=== PATIENT | male | born 1950 | race Caucasian/White ===

== ENCOUNTER 2021-12-27 07:52 | Outpatient (CLI) | payer BC, SELFPAY ==
[2021-12-27 11:39] LABS: Albumin* 4.3 g/dL (3.3-5.0); Chloride* 98 mmol/L (96-114); Sodium* 135 mmol/L (135-149)
[2021-12-27 11:40] LABS: Potassium* 4.5 mmol/L (3.6-5.1)
[2021-12-27 11:42] LABS: Alanine Aminotransferase* 6 U/L (4-50); Alkaline Phosphatase* 97 U/L (40-150); Aspartate Amino Transferase* 22 U/L (12-35); Bilirubin Total* 0.6 mg/dL (0.1-1.5); Blood Urea Nitrogen* 17 mg/dL (7-30); Carbon Dioxide* 30 mmol/L (20-32); Cholesterol* 170 mg/dL (90-199); Creatinine* 0.9 mg/dL (0.5-1.5); Estimated Glomerular Filt Rate 91 ml/min; Glucose* 229 mg/dL (60-115); Total Protein* 7.2 g/dL (6.0-8.3); Triglycerides* 288 mg/dL (40-149)
[2021-12-27 11:43] LABS: Calcium* 9.4 mg/dL (8.4-10.6); HDL Cholesterol* 39 mg/dL (>=40); LDL Cholesterol Calculated 73 mg/dL (<100)
[2021-12-27 12:09] LABS: Microalbumin Creatinine Ratio 10 mg/g (0-30); Microalbumin Urine 2 mg/dL
== END 2021-12-27 07:53 | disposition home or self-care (01) ==
PROVIDERS: PCP Family Medicine; Visit Provider Family Medicine
DX: Z00.00 Encounter for general adult medical examination without abnormal findings (principal); E11.9 Type 2 diabetes mellitus without complications; G20 Parkinson's disease; E78.5 Hyperlipidemia, unspecified; I95.9 Hypotension, unspecified
CPT/HCPCS: 80053; 80061; 82043; 82570

== ENCOUNTER 2023-10-02 08:20 | Outpatient (CLI) | payer BC, SELFPAY ==
--- OUTSIDE RECORDS SUMMARY | 2023-10-06 06:42 | XMS_ITS ---
Author Name Unknown Organization [facility] Address [address] [place] [address] Care Team Providers Care Sorter Operator Name Role Phone Unavailable Unavailable Unavailable Surgery Details Not on file Complications Check Surgery Details section. Procedure Estimated Blood Loss Check Surgery Details section. Procedure Findings Check Surgery Details section. Procedure Specimens Taken Check Surgery Details section.
--- OUTSIDE RECORDS SUMMARY | 2023-10-06 06:42 | XMS_ITS | Clinical Summary ---
Author Name Unknown Organization [facility] Address [address] [place] [address] Care Team Providers Care Drilling Manager Name Role Phone Elsewhere, Pcp Primary Care Provider Unavailabl e Source Comments Patient records contain information from all sites at [facility]. For routine questions regarding patient records, call [phone] during business hours, M-F 8:00 AM - 5:00 PM Central Time. Record requests for emergency care only can be directed to [phone] at any time.[facility] Allergies No known active allergies Medications Medication Sig Dispensed Refills Start Date End Date Status simvastatin (ZOCOR) 20 mg tablet Take 20 mg by mouth every evening. 05/06/2018 Active calcium citrate-vitamin D3 315-250 mg-unit per tablet Take 1 tablet by mouth daily with breakfast. Active multivitamin-mine jani-QU-kwligmhh- lutein (CENTRUM SILVER) 0.4-300-250 mg-mcg-mcg tablet Take 1 tablet by mouth every morning. Active cholecalciferol, vitamin D3, 25 mcg (1,000 Unit) tablet Take 1,000 Units by mouth every morning. Active carbidopa-levodop a (SINEMET) 25-100 mg per tablet Take 2 tablets by mouth 3 (three) times a day. 540 tablet 3 09/19/2023 Active carbidopa-levodop a (SINEMET) 25-100 mg per tablet TAKE 2 TABLETS BY MOUTH THREE TIMES DAILY 540 tablet 3 10/01/2022 09/19/2023 Discontinued (Reorder) Active Problems Patient Care Coordination No te Formatting of this note migh t be different from the original. 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 Med Refill from Last 3 Months Immunizations Name Administration Dates Next Due HZV (ZOSTAVAX) 02/11/2017 Influenza, Unspecified 06/22/1996 MMR 06/03/2017 PCV13 05/17/2016 Pneumococcal, Unspecified 06/03/2017 Td, (Adult) Unspecified 02/15/2009 Tdap 05/06/2018 Family History Medical History Relation Name Comments Cancer Mother Relation Name Status Comments Father Mother Social History Tobacco Use Types Packs/Day Years Used Date Smoking Tobacco: Never Smokeless Tobacco: Never Alcohol Use Standard Drinks/Week Comments No 0 (1 standard drink = 0.6 oz pur e alcohol) Social Connection and Isolation Panel [NHANES] A nswer Date Recorded Frequency of Communication with Friends and Fami ly Not on file 12/24/2019 How often do you get together with friends or re latives? Never 12/24/2019 How often do you attend bahai or temple serv ices? Never 12/24/2019 Active Member of Clubs or Organizations Not on f ile 12/24/2019 How often do you attend meet ings of the clubs or organizations you belong to? Never 12/24/2019 Marital Status Not on file 12/24/2019 AUDIT-C Answer Date Recorded Frequency of Alcohol Consumption Never 01/09/2019 Average Number of Drinks Patient declined 2018 Frequency of Binge Drinking Never 12/25 Overall Financial Resource Strain (CARDIA) Answe r Date Recorded Difficulty of Paying Living Expenses Not very call[address] rd 01/09/2019 PHQ-2 Answer Date Recorded PHQ-2 Score 0 01/23/2019 [facility] [place] of Occupat ional Health - Occupational Stress Questionnaire Answer Date Recorded Do you feel stress - tense, restless, nervous, or anxious, or unable to sleep at night because your mind is troubled all the time - these days? Only a little 12/24/2019 Exercise Vital Sign Answer Date Recorde d Days of Exercise per Week Not on file 2019 On average, how many minutes do you engage in exercise at this level? 30 min 12/24/2019 Hunger Vital Sign Answer Date Recorded Worried About Running Out of Food in the Last Ye ar Never true 01/09/2019 Ran Out of Food in the Last Year Never true 01/09/2019 PRAPARE - Transportation Answer Date Re corded Lack of Transportation (Medical) No 01/09/2019 Lack of Transportation (Non-Medical) No 01/09/2019 Nutrition Answer Date Recorded Nutrition: EVOO Fat Source Unknown 12/29 Nutrition: Servings of Fruits/Vegetables per Day Not on file 12/29/2022 Dental Answer Date Recorded Dental: Regular Dentist Unknown 12/30/19 23 Education Answer Date Recorded What is the highest level of school you have completed or the highest degree you have received? 10th grade 01/09/2019 Sex and Gender Information Value Date Recorded Sex Assigned at Not on file Gender Identity Male 09/13/2018 7:59 AM CDT Sexual Orientation Straight 03/26/2020 12 :05 PM CDT Last Filed Vital Signs Vital Sign Reading Time Taken Comments Blood Pressure 160/84 01/06/2020 1:00 PM CDT Pulse 66 01/06/2020 1:00 PM CDT Temperature 36.6 ??C (97.9 ??F) 01/06/2020 1:00 PM CD T Respiratory Rate 18 01/06/2020 1:00 PM CDT Oxygen Saturation 94% 01/06/2020 1:00 PM CDT Inhaled Oxygen Concentration - - Weight 70.3 kg (154 lb 15.7 oz) 01/06/2020 9:33 AM CDT Height 174.5 cm (5' 8.7) 01/06/2020 9:33 AM CDT Body Mass Index 23.09 01/06/2020 9:33 AM CDT Plan of Treatment Health Maintenance Due Date Last Done Comments CT Colonography 1950 Cologuard 1950 Colonoscopy 1950 Colorectal Cancer Screening 1950 FIT 1950 Hepatitis C Screening 1950 Zoster Vaccines (2 of 3) 04/08/2017 02/11/2017 Pneumococcal vaccine (65+ ye ars) (2 of 2 - PPSV23 or PCV20) 05/17/2017 06/03/2017, 06/03/2017, 05/17/2016 Fasting Glucose for Diabetes Screening 04/29/2021 04/29/2018, 05/29/2017 Lipid (Cholesterol) Screening 04/29/2023 04/29/2018, 05/29/2017 Depression Screening (Annual PHQ-2) 05/27/2023 Fall Risk Screen (Annual) 05/27/2023 COVID-19 Vaccine (2022-2 4 season) 2023 03/25/2023, 01/02/2022, 04/06/2021, Additional history exists DTaP,Tdap,and Td Vaccines (3 - Td or Tdap) 11/28/2030 11/28/2020, 05/06/2018, 02/15/2009 Influenza Vaccine Completed 03/25/2023, , 03/01/2021, Additional history exists Medical Devices Implanted Type Area Stack Yield Engineer Device Identifier Shelf Expiration Date Model / Serial / Lot Percpt Brainsense Generator Implanted:Qty: 1 on 01/06/2020 by Gab Campbell M.D., Ph.D. at [facility] Deep Brain Stimulator Left: Chest Wall Medtronic [id number] / [id number] / Plt Mtr Cmf Str 2h 12 - [id number] Implanted:Qty: 2 on 12/30/2019 at [facility] Hardware e.g. pins/screws/r ods Brain Depuy Synthes 04503.062 / / Scrw Ti Mtr Slv 1.55x2.55x5 - [id number] Implanted:Qty: 4 on 12/30/2019 at [facility] Hardware e.g. pins/screws/r ods Brain Depuy Synthes 04503.105 .01 / / Lead Dbs Perq Brain 4 Elctrd - [id number] Implanted:Qty: 1 on 12/30/2019 at [facility] Spinal Cord Stimulator Right: Brain Medtronic 06/10/2022 [id number] / / [id number] Lead Dbs Perq Brain 4 Elctrd - [id number] Implanted:Qty: 1 on 12/30/2019 at [facility] Spinal Cord Stimulator Left: Brain Medtronic 06/10/2022 [id number] / / [id number] Kt Neurostm 60 - [id number] - [id number] Implanted:Qty: 1 on 01/06/2020 by Gab Campbell M.D., Ph.D. at [facility] Spinal Cord Stimulator Left: Brain Medtronic 11/16/2023 [id number] / [id number] / Kt Neurostm 60 - [id number] - [id number] Implanted:Qty: 1 on 01/06/2020 by Gab Campbell M.D., Ph.D. at [facility] Spinal Cord Stimulator Left: Brain Medtronic 11/16/2023 [id number] / [id number] / Procedures Procedure Name Priority Date/Time Associated Diagnosis Comments BASIC METABOLIC PANEL, S/P Routine 04/29/2018 LIPID PANEL, S Routine 04/29/2018 from Last 3 Months or Most Recently Relevant to Health Maintenance Results * Lipid Panel (04/29/2018) Triglycerides 123 40 - 160 UNDERGROUND CONDUIT INSTALLER AL NON-INTERFACE D LAB Cholesterol, Total 134 0 - 200 E XTERNAL NON-INTERFACE D LAB Cholesterol, HDL, S 50 35 - 70 EXTERNAL NON-INTERFACE D LAB LDL Cholesterol 59 EXTE RNAL NON-INTERFACE D LAB Blood (Blood, Venous) Ordering Provider External M.D. LAB BLOO D NON ADD-ON Performing Organization Address [facility] Co de Phone Number EXTERNAL NON-INTERFACED LAB [address] [place] [address] * Basic Metabolic Panel (04/29/2018) Glucose 102 mg/dL EXTERNAL NON-INTERFACED LAB Blood (Blood, Venous) Ordering Provider External M.D. LAB BLOO D ADD-ON Performing Organization Address [facility]/ZIP Co de Phone Number EXTERNAL NON-INTERFACED LAB [address] [place] [address] from Last 3 Months or Most Recently Relevant to Health Maintenance Advance Directives For more information, please contact: [phone] Documents on File Type Date Recorded Patient Medical Officer Psychiatry Expl anation Advance Directives 12/30/2019 7:13 AM Healt h Care Directive * Full Code (Latest Code Status on File) Date Activated Date Inactivated Comments 12/30/2019 12:52 PM 12/31/2019 12:03 PM Question Answer Comments Full Code: Not Discussed Due to: Patient not available Healthcare Agents on File Name Relationship Healthcare Agent Relationshi p Communication Lauren Chawla Spouse Health Care Agent Elizabeth Ann Efren Daughter First Alternate Health Care Agent Care Teams Drilling Manager Relationship Specialty Start Date End Date Elsewhere, Pcp PCP - General Family Medicine 05/21/18
--- OUTSIDE RECORDS SUMMARY | 2023-10-06 06:42 | XMS_ITS | Referral Summary ---
Author Name Unknown Organization [facility] Address [address] [place] [address] Care Team Providers Care Point Of Care Specialist Name Role Phone Elsewhere, Pcp Primary Care Provider Unavailabl e Source Comments Patient records contain information from all sites at [facility]. For routine questions regarding patient records, call [phone] during business hours, M-F 8:00 AM - 5:00 PM Central Time. Record requests for emergency care only can be directed to [phone] at any time.[facility] Encounters Date Type Department Care Team Description 09/19/2023 Refill Department of Neurology in [place], [place] [address] [place] [address] Robin Jacobs M.D. Med Refill from Last 3 Months Allergies No known active allergies Medications Medication Sig Dispensed Refills Start Date End Date Status simvastatin (ZOCOR) 20 mg tablet Take 20 mg by mouth every evening. 05/06/2018 Active calcium citrate-vitamin D3 315-250 mg-unit per tablet Take 1 tablet by mouth daily with breakfast. 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 Never 12/24/2019 Active Member of [...] Answer Date Recorded PHQ-2 Score 0 01/23/2019 [facility] [place] of Occupat ional Health - Occupational Stress [...] 01/06/2020 9:33 AM CDT Plan of Treatment Not on file Medical Devices Implanted Type Area Restaurant Service Manager Device Identifier Shelf Expiration Date Model / Serial / Lot Percpt Brainsense Generator Implanted:Qty: 1 on 01/06/2020 by aGb Campbell M.D., Ph.D. at [facility] Deep Brain Stimulator Left: Chest Wall Medtronic [id number] / [id number] / Plt Mtr Cmf [facility] 12 - [id number] Implanted:Qty: 2 on 12/30/2019 at [facility] Hardware e.g. pins/screws/r ods Brain Depuy Synthes 503.062 / / Scrw Ti Mtr Slv 1.55x2.55x5 - [id number] Implanted:Qty: 4 on 12/30/2019 at [facility] Hardware e.g. pins/screws/r ods Brain Depuy Synthes 503.105 .01 / / Lead Dbs Perq Brain 4 Elctrd - [id number] Implanted:Qty: 1 on 12/30/2019 at [facility] Spinal Cord Stimulator Right: Brain Medtronic 06/10/2022 [id number] / / [id number] Lead Dbs Perq Brain 4 Elctrd - [id number] Implanted:Qty: 1 on 12/30/2019 at [facility] Spinal Cord Stimulator Left: Brain Medtronic 06/10/2022 [id number] / / [id number] Kt Neurostm 60 - [id number] - [id number] Implanted:Qty: 1 on 01/06/2020 by Gab Campbell M.D., Ph.D. at [facility] Spinal Cord Stimulator Left: Brain Medtronic 11/16/2023 [id number] / [id number] / Kt Neurostm 60 - [id number] - [id number] Implanted:Qty: 1 on 01/06/2020 by Gab Campbell M.D., Ph.D. at [facility] Spinal Cord Stimulator Left: Brain Medtronic 11/16/2023 [id number] / [id number] / Procedures Procedure Name Priority Date/Time Associated Diagnosis Comments BASIC METABOLIC PANEL, S/P Routine 04/29/2018 LIPID PANEL, S Routine 04/29/2018 from Last 3 Months or Most Recently Relevant to Health Maintenance Results * Lipid Panel (04/29/2018) Triglycerides 123 40 - 160 FORKLIFT TRUCK OPERATOR AL NON-INTERFACE D LAB Cholesterol, Total 134 0 - 200 E XTERNAL NON-INTERFACE D LAB Cholesterol, HDL, S 50 35 - 70 EXTERNAL NON-INTERFACE D LAB LDL Cholesterol 59 EXTE RNAL NON-INTERFACE D LAB Blood (Blood, Venous) Ordering Provider External M.D. LAB BLOO D NON ADD-ON Performing Organization Address [facility] de Phone Number EXTERNAL NON-INTERFACED LAB [address] [place] [address] * Basic Metabolic Panel (04/29/2018) Glucose 102 mg/dL EXTERNAL NON-INTERFACED LAB Blood (Blood, Venous) Ordering Provider External M.D. LAB BLOO D ADD-ON Performing Organization Address [facility] Co de Phone Number EXTERNAL NON-INTERFACED LAB [address] [place] [address] from Last 3 Months or Most Recently Relevant to Health Maintenance Advance Directives For more information, please contact: [phone] Documents on File Type Date Recorded Patient Manager Proposal Expl anation Advance Directives 12/30/2019 7:13 AM Healt h Care Directive * Full Code (Latest Code Status on File) Date Activated Date Inactivated Comments 12/30/2019 12:52 PM 12/31/2019 12:03 PM Question Answer Comments Full Code: Not Discussed Due to: Patient not available Healthcare Agents on File Name Relationship Healthcare Agent [facility] Communication Lauren Denton Spouse Health Care Agent Elizabethshima Schwartz Daughter First Alternate Health Care Agent Care Teams Point Of Care Specialist Relationship Specialty Start Date End Date Elsewhere, Pcp PCP - General Family Medicine 05/21/18
--- OUTSIDE RECORDS SUMMARY | 2023-10-06 06:42 | XMS_ITS | Encounter Summary ---
Author Name Unknown Organization [facility] Address [address] [place] [address] Care Team Providers Care Mounter Smoking Pipe Name Role Phone Elsewhere, Pcp Primary Care Provider Unavailabl e Reason for Visit * Reason Comments Med Refill Encounter Details Date Type Department Care Team (Late st Contact Info) Description 09/19/2023 Refill Department of Neurology in [place], [place] [address] [place] [address] Robin Jacobs M.D. [address] [place] [phone] Med Refill Social History Tobacco Use Types Packs/Day Years [...] How often do you attend bahai or episcopal serv ices? Never 12/24/2019 Active Member of [...] Answer Date Recorded PHQ-2 Score 0 01/23/2019 [facility] [place] of Occupat ional Health - Occupational Stress [...] Orientation Straight 03/26/2020 12 :05 PM CDT documented as of this encounter Plan of Treatment Not on file documented as of this encounter Visit Diagnoses Not on filedocumented in this encounter Additional Health Concerns Assessment Noted Time PHQ-9 Depression Total Score: 0 01/24/20 19 8:05 AM CDT documented as of this encounter Care Teams Mounter Smoking Pipe Relationship Specialty Start Date End Date Elsewhere, Pcp PCP - General Family Medicine 05/21/18 documented as of this encounter
== END 2023-10-02 08:21 | disposition home or self-care (01) ==
LOC: NFLDREF 10-06 06:40
PROVIDERS: PCP Family Medicine; Referring Provider Family Medicine; Visit Provider Internal Medicine
DX: E11.9 Type 2 diabetes mellitus without complications (principal); I10 Essential (primary) hypertension; Z13.220 Encounter for screening for lipoid disorders; Z12.5 Encounter for screening for malignant neoplasm of prostate
CPT/HCPCS: 80053; 80061; 82043; 82570; G0103

== ENCOUNTER 2024-02-11 08:55 | Outpatient (CLI) | payer BC, SELFPAY ==
--- OUTSIDE RECORDS SUMMARY | 2024-02-13 11:23 | XMS_ITS | Clinical Summary ---
Author Organization [facility] Address [address] [place] [address] Care Team Providers Care Photography Editor Name Role Phone Elsewhere, Pcp Primary Care Provider Unavailabl e Source Comments Patient records contain information from all sites at [facility]. For routine questions regarding patient records, call [phone] during business hours, M-F 8:00 AM - 5:00 PM Central Time. Record requests for emergency care only can be directed to [phone] at any time.[facility] Allergies No known active allergies Medications Medication Sig Dispensed Refills Start Date End Date Status simvastatin (ZOCOR) 20 mg tablet Take 20 mg by mouth every evening. 05/06/2018 Active calcium citrate-vitamin D3 315-250 mg-unit per tablet Take 1 tablet by mouth daily with breakfast. Active multivitamin-mineral q-PQ-mlwjnscy-lutein (CENTRUM SILVER) 0.4-300-250 mg-mcg-mcg tablet Take 1 tablet by mouth every morning. Active cholecalciferol, vitamin D3, 25 mcg (1,000 Unit) tablet Take 1,000 Units by mouth every morning. Active carbidopa-levodopa (SINEMET) 25-100 mg per tablet Take 2 tablets by mouth 3 (three) times a day. 540 tablet 3 09/19/2023 Active Active Problems Patient Care Coordination No te Formatting of this note migh t be different from the original. 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 Parkinson's Disease With Dyskinesia, With Fluctuations (HCC) (Primary Dx); Parkinsonism Unspecified (HCC) from Last 3 Months Immunizations Name Administration [...] Never 12/24/2019 How often do you attend gnosticism or holiness serv ices? Never 12/24/2019 Active Member of [...] Answer Date Recorded PHQ-2 Score 0 01/23/2019 [facility] of Occupat ional Health - Occupational Stress [...] Date Recorded Dental: Regular Dentist Unknown 12/30/19 Education Answer Date Recorded What is the [...] Fall Risk Screen (Annual) 05/27/2023 COVID-19 Vaccine ( - 2022-2 4 season) 2024 03/25/2023, 01/02/2022, 04/06/2021, Additional history exists Influenza Vaccine (#1) 2024 , 03/07/2022, 03/01/2021, Additional history exists DTaP,Tdap,and Td Vaccines (4 - Td or Tdap) 11/28/2030 11/28/2020, 05/06/2018, 12/19/2011, Additional history exists Medical Devices Implanted Type Area Actuarial Science Professor Device Identifier Shelf Expiration Date Model / Serial / Lot Percpt Brainsense Generator Implanted:Qty: 1 on 01/06/2020 by Gab Campbell M.D., Ph.D. at [facility] Deep Brain Stimulator Left: Chest Wall Medtronic [id number] / [id number] / Plt Mtr Cmf Str 2h 12 - [id number] Implanted:Qty: 2 on 12/30/2019 at [facility] Hardware e.g. pins/screws/r ods Brain Depuy Synthes 04.503.062 / / Scrw Ti Mtr Slv 1.55x2.55x5 - [id number] Implanted:Qty: 4 on 12/30/2019 at [facility] Hardware e.g. pins/screws/r ods Brain Depuy Synthes 04.503.105 .01 / / Lead Dbs Perq Brain 4 Elctrd - [id number] Implanted:Qty: 1 on 12/30/2019 at [facility] Spinal Cord Stimulator Right: Brain Medtronic 06/10/2022 [id number] / / [id number] Lead Dbs Perq Brain 4 Elctrd - [id number] Implanted:Qty: 1 on 12/30/2019 at [facility] Spinal Cord Stimulator Left: Brain Medtronic 06/10/2022 [id number] / / [id number] Kt Neurostm 60 - [id number] - [id number] Implanted:Qty: 1 on 01/06/2020 by Gab Campbell M.D., Ph.D. at [facility] Spinal Cord Stimulator Left: Brain Medtronic 11/16/2023 [id number] / [id number] / Kt Neurostm 60 - [id number] - [id number] Implanted:Qty: 1 on 01/06/2020 by Gab Campbell M.D., Ph.D. at [facility] Spinal Cord Stimulator Left: Brain Medtronic 11/16/2023 [id number] / [id number] / Procedures Procedure Name Priority Date/Time Associated Diagnosis Comments DEEP BRAIN STIMULATOR (DBS) PROGRAMMING MOVEMENT DISORDER - NURSING Routine 01/16/2024 9:32 AM CDT Parkinson Disease (HCC) BASIC METABOLIC PANEL, S/P Routine 04/29/2018 LIPID PANEL, S Routine 04/29/2018 from Last 3 Months or Most Recently Relevant to Health Maintenance Results * Lipid Panel (04/29/2018) Triglycerides 123 40 - 160 SALES AND MARKETING ANALYST AL NON-INTERFACE D LAB Cholesterol, Total 134 0 - 200 E XTERNAL NON-INTERFACE D LAB Cholesterol, HDL, S 50 35 - 70 EXTERNAL NON-INTERFACE D LAB LDL Cholesterol 59 EXTE RNAL NON-INTERFACE D LAB Blood (Blood, Venous) Ordering Provider External M.D. LAB BLOO D NON ADD-ON Performing Organization Address [facility] Co de Phone Number EXTERNAL NON-INTERFACED LAB [address] [place] [address] * Basic Metabolic Panel (04/29/2018) Glucose 102 mg/dL EXTERNAL NON-INTERFACED LAB Blood (Blood, Venous) Ordering Provider External M.D. LAB BLOO D ADD-ON Performing Organization Address [facility]/ZIP Co de Phone Number EXTERNAL NON-INTERFACED LAB [address] [place] [address] from Last 3 Months or Most Recently Relevant to Health Maintenance Advance Directives For more information, please contact: [phone] Documents on File Type Date Recorded Patient Semi Automatic Sewing Machine Operator Expl anation Advance Directives 12/30/2019 7:13 AM Healt h Care Directive * Full Code (Latest Code Status on File) Date Activated Date Inactivated Comments 12/30/2019 12:52 PM 12/31/2019 12:03 PM Question Answer Comments Full Code: Not Discussed Due to: Patient not available Healthcare Agents on File Name Relationship Healthcare Agent Relationshi p Communication Lauren Chawla Spouse Health Care Agent Elizabeth Schwartz Daughter First Alternate Health Care Agent Care Teams Photography Editor Relationship Specialty Start Date End Date Elsewhere, Pcp PCP - General Family Medicine 05/21/18
--- OUTSIDE RECORDS SUMMARY | 2024-02-13 11:23 | XMS_ITS | Referral Summary ---
Author Organization [facility] Address [address] [place] [address] Care Team Providers Care Black Mill Operator Name Role Phone Elsewhere, Pcp Primary Care Provider Unavailabl e Source Comments Patient records contain information from all sites at [facility]. For routine questions regarding patient records, call [phone] during business hours, M-F 8:00 AM - 5:00 PM Central Time. Record requests for emergency care only can be directed to [phone] at any time.[facility] Encounters Date Type Department Care Team Description 01/16/2024 10:00 AM CDT Ancillary Procedure Department of Neurology in [place], [place] [address] [place] [address] Robin Jacobs M.D. Parkinson's Disease With Dyskinesia, With Fluctuations (HCC) (Primary Dx); Parkinsonism Unspecified (HCC) from Last 3 Months Allergies No known active allergies Medications Medication Sig Dispensed Refills Start Date End Date Status simvastatin (ZOCOR) 20 mg tablet Take 20 mg by mouth every evening. 05/06/2018 Active calcium citrate-vitamin D3 315-250 mg-unit per tablet Take 1 tablet by mouth daily with breakfast. Active multivitamin-mineral p-HF-vmfbfumf-lutein (CENTRUM SILVER) 0.4-300-250 mg-mcg-mcg tablet Take 1 [...] Never 12/24/2019 How often do you attend samaritan or episcopalian serv ices? Never 12/24/2019 Active Member of [...] Answer Date Recorded PHQ-2 Score 0 01/23/2019 [facility] [place] of Occupat ional Health - Occupational Stress [...] on file Medical Devices Implanted Type Area Driftman Device Identifier Shelf Expiration Date Model / Serial / Lot Percpt Brainsense Generator Implanted:Qty: 1 on 01/06/2020 by Gab Campbell M.D., Ph.D. at [facility] Deep Brain Stimulator Left: Chest Wall Medtronic [id number] / [id number] / Plt Mtr Cmf Str 2h 12 - [id number] Implanted:Qty: 2 on 12/30/2019 at [facility] Hardware e.g. pins/screws/r ods Brain [employer] 503.062 / / Scrw Ti Mtr Slv 1.55x2.55x5 - [id number] Implanted:Qty: 4 on 12/30/2019 at [facility] Hardware e.g. pins/screws/r ods Brain Depuy Synthes 503.105 .01 / / Lead Dbs Perq Brain 4 Elctrd - [id number] Implanted:Qty: 1 on 12/30/2019 at [facility] Spinal Cord Stimulator Right: Brain Medtronic 06/10/2022 [id number] / / [id number] Lead Dbs Perq Brain 4 Elctrd - [id number] Implanted:Qty: 1 on 12/30/2019 at [facility] Spinal Cord Stimulator Left: Brain Medtronic 06/10/2022 [id number] / / [id number] Kt Neurostm 60 - [id number] - [id number] Implanted:Qty: 1 on 01/06/2020 by Gab Campbell M.D., Ph.D. at [facility] Spinal Cord Stimulator Left: Brain Medtronic 11/16/2023 [id number] / [id number] / Kt Neurostm 60 - [id number] - [id number] Implanted:Qty: 1 on 01/06/2020 by Gab Campbell M.D., Ph.D. at [facility] Spinal Cord Stimulator Left: Brain Medtronic 11/16/2023 [id number] / [id number] / Procedures Procedure Name Priority Date/Time Associated Diagnosis Comments DEEP BRAIN STIMULATOR (DBS) PROGRAMMING MOVEMENT DISORDER - NURSING Routine 01/16/2024 9:32 AM CDT Parkinson Disease (HCC) BASIC METABOLIC PANEL, S/P Routine 04/29/2018 LIPID PANEL, S Routine 04/29/2018 from Last 3 Months or Most Recently Relevant to Health Maintenance Results * Lipid Panel (04/29/2018) Triglycerides 123 40 - 160 [facility] SOR[facility] AL NON-INTERFACE D LAB Cholesterol, Total 134 0 - 200 E XTERNAL NON-INTERFACE D LAB Cholesterol, HDL, S 50 35 - 70 EXTERNAL NON-INTERFACE D LAB LDL Cholesterol 59 EXTE RNAL NON-INTERFACE D LAB Blood (Blood, Venous) Ordering Provider External M.D. LAB BLOO D NON ADD-ON Performing Organization Address [facility] Co de Phone Number EXTERNAL NON-INTERFACED LAB [address] [place] [address] * Basic Metabolic Panel (04/29/2018) Glucose 102 mg/dL EXTERNAL NON-INTERFACED LAB Blood (Blood, Venous) Ordering Provider External M.D. LAB BLOO D ADD-ON Performing Organization Address [facility] Co de Phone Number EXTERNAL NON-INTERFACED LAB [address] [place] [address] from Last 3 Months or Most Recently Relevant to Health Maintenance Advance Directives For more information, please contact: [phone] Documents on File Type Date Recorded Patient Sales Broker Expl anation Advance Directives 12/30/2019 7:13 AM Healt h Care Directive * Full Code (Latest Code Status on File) Date Activated Date Inactivated Comments 12/30/2019 12:52 PM 12/31/2019 12:03 PM Question Answer Comments Full Code: Not Discussed Due to: Patient not available Healthcare Agents on File Name Relationship Healthcare [facility] Lauren Chawla Spouse Health Care Agent Elizabeth Ann Efren Daughter First Alternate Health Care Agent Care Teams Black Mill Operator Relationship Specialty Start Date End Date Elsewhere, Pcp PCP - General Family Medicine 05/21/18
--- OUTSIDE RECORDS SUMMARY | 2024-02-13 11:23 | XMS_ITS ---
Author Organization [facility] Address [address] [place] [id number] Care Team Providers Care Day Porter Name Role Phone Unavailable Unavailable Unavailable Surgery Details Not on file Complications Check Surgery Details section. Procedure Estimated Blood Loss Check Surgery Details section. Procedure Findings Check Surgery Details section. Procedure Specimens Taken Check Surgery Details section.
--- OUTSIDE RECORDS SUMMARY | 2024-02-13 11:23 | XMS_ITS | Encounter Summary ---
Author Organization [facility] Address [address] [place] [address] Care Team Providers Care [employer] Distillery Name Role Phone Elsewhere, Pcp Primary Care Provider Unavailabl e Reason for Referral * Outpatient (Routine) - Pending Review Specialty Diagnoses / Procedures Referred By Ngozi peacock Referred To Contact Diagnoses Parkinsonism Unspecified (HCC) Procedures Deep brain stimulator (DBS) programming movement disorder - Nursing Desiree Slaughter M.D. [address] [place] [address] [facility] Referral ID Status Reason Start Date Expiration Date V isits Requested Visits Authorized [id number] Pending Review 01/16/2024 01/15/2025 1 1 Reason for Visit * Outpatient (Routine) - Closed Specialty Diagnoses / Procedures Referred By Ngozi peacock Referred To Contact Diagnoses Parkinsonism Unspecified (HCC) Procedures Deep brain stimulator (DBS) programming - Nursing IN [facility] NPGT PRGRMG 15 MIN Robin Jacobs M.D. [address] [place] [address] [facility] Referral ID Status Reason Start Date Expiration Date Visits Re quested Visits Authorized [id number] Closed 01/26/2023 01/26/2024 1 1 Encounter Details Date Type Department Care Team (Latest Contact Info) Description 01/16/2024 10:00 AM CDT Ancillary Procedure Department of Neurology in [place], [place] [address] [place] [address] Robin Jacobs M.D. [address] [place] [address] Parkinson's Disease With Dyskinesia, With Fluctuations (HCC) (Primary Dx); Parkinsonism Unspecified (HCC) Social History Tobacco Use Types Packs/Day Years [...] Never 12/24/2019 How often do you attend buddhist or adventism serv ices? Never 12/24/2019 Active Member of [...] Answer Date Recorded PHQ-2 Score 0 01/23/2019 [facility] of Occupat ional Health - Occupational Stress [...] PM CDT documented as of this encounter Progress Notes * Meaghan Abreu R.NAnna - 01/16/2024 10:00 AM CDT Images from the original note were not included. NURSING DBS CLINIC NOTE Mr. Chawla is a 73 y.o.-year-old male who presents today for follow-up of DBS therapy. Current DBS System Information: Electrode(s): bilateral subthalamic nucleus Medtronic [id number] implanted on December 31, 2019. Associated IPG: Vusaytronic Percept PC ([id number]) implanted in left infraclavicular space on December. Mr. Chawla says he has noticed tremor in his left leg, right arm, and jaw tremor. There are times when this worsens. He lost his in March 2023 and had the burial in October. This has been hard on him and when he thinks about this he notices his tremor worsen. He does not wish to make changes as he feels comfortable with the settings as they are. We did review that he can increase stimulation to see if this helps further with tremor. Today, his neurostimulator was interrogated, but no changes were made to the active stimulating parameters. Please see the DBS flowsheets for full details. Stimulation settings: The amplitude limits that the patient can access with her controller (in volts) include: Group Left Stim - Lower Limit Left Stim - Upper Limit Right Stim - Lower Limit Right Stim - Upper Limit A 0.0 3.20 0.0 3.60 B 0.0 0.0 C 0.0 0.0 D 0.0 0.0 Electrode Impedance: Battery Voltage:12 months, he will continue to monitor this. His daughter was present for review aswell Total interrogation/programming time today was: 30 minutes. Written information was provided and the patient television news photographer was reviewed. Mr. Chawla demonstrated ability to use the patient television news photographer. He should not increase stimulation amplitude for two weeks.After that time he may begin gradual increases, one side per day as needed. He will keep his neurostimulator turned on [address] Desiree Slaughter also met with Mr. Chawla. Please see those associated notes for additional details and recommendations. A return is planned in one year. * Desiree Slaughter M.D. - 01/16/2024 10:00 AM CDT SUBJECTIVE CHIEF COMPLAINT / REASON FOR VISIT: Parkinson disease status post deep brain stimulation HISTORY OF PRESENT ILLNESS: Mr. Chawla is a 73 y.o.-year-old male from [facility] [address] who has a history of Parkinson disease for which he underwent implantation of a DBS system as follows: Current DBS System: Electrode(s): bilateral subthalamic nucleus Medtronic [id number] implanted on December 31, 2019. Associated IPG: Vusaytronic Percept PC ([id number]) implanted in left infraclavicular space on December. He was seen in DBS clinic on 03/30/2021 at which point he reported good control of tremor with somebaseline worsening of speech and anxiety, as well as some jaw stiffness which was unrelated to medication or stimulation, and a jaw tremor. No changes were made to stimulation settings at his last visit, in his speech did not change when stimulation was off. At his last visit, he was on 2 tablets of levodopa 3 times daily, and did not notice any wearing off. At last follow- up, He reports some mild worsening of tremor but otherwise symptoms have been pretty stable in the last year. He remains on2 tablets of levodopa 3 times daily. He is not noticing wearing off. He is not noticing dyskinesia.He reports stable balance and is not having any falls or requiring any gait assistance. Does reportsome stable dysarthria of speech, for which she had seen speech therapy several years ago. He does work on exercises at home for this. Amplitudes were ultimately increased at this visit which helped further with tremor and bradykinesia, In the last year, patient has noticed tremor in his left leg, right arm, and jaw that has progressed. He states that the changes are mild however and he has not made changes on his own with the stimulator. OBJECTIVE EXAM: For full details of Mr. Chawal's arrival standardized scale scores, please see the flowsheet of today's date. Mr. Chawla'rangel parkinsonism exam is as follows (R/L): On medicaton? Yes Patient's clinical state: Off Is the patient on Levodopa: Yes Minutes since last dose: 840 Speech: 3 Facial expression: 2 TREMOR Right Left TONE Right Left Lip/Jaw tremor: 2 Neck rigidity: 0 Arm tremor (rest): 0 0 Arm rigidity: 0 0 Arm tremor (postural): 0 0 Leg rigidity: 0 0 Arm tremor (kinetic): 1 0 Leg tremor (rest): 0 2 Constancy of rest tremor: 2 GAIT/STANCE BRADYKINESIA Right Left Arising from chair: 1 Finger taps: 0 1 Posture: 1 Hand opening/closin 0 Postural stability: 0 Hand flips: 0 0 Freezing of Gait: 0 Leg agility: 1 2 Gait: 1 Toe taps: 1 2 Global spontaneity 0 Were dyskinesias present? No If yes, did these movements interfere with ratings? Jonathan and Yahr Stage: Deep brain stimulation status: On TOTAL MDS UPDRS part III score was 22. ASSESSMENT / PLAN #1 Parkinson disease #2 Status post bilateral subthalamic nucleus deep brain stimulation, 2019 Mr. Chawla continues to derive excellent tremor control with bilateral STN DBS. Residual problems include dysarthria, which is not stimulation dependent, and some recurrence of tremor. The DBS system was interrogated and reprogrammed with the assistance of nurse Meaghan Abreu. Full findings appear in her notes of today's date. In summary, patient preferred to not change stimulation at this time. He is still under his range and could increase at home if he wished for tremor in the future. He will continue to keep his stimultor turned ON 24 hours a day. Regarding medications, we will make no changes today. We will plan to see Mr. Chawla back in DBS Clinic in around one year for another review. Patient care / care coordination time on the date of encounter (excluding billed programming time):10 minutes. PATIENT EDUCATION Ready to learn, no apparent learning barriers were identified; learning preferences include listening. Explained diagnosis and treatment plan; patient expressed understanding of the content. documented in this encounter Plan of Treatment Scheduled Orders Name Type Priority Associated Diagnoses Orde r Schedule Deep brain stimulator (DBS) programming movement disorder - Nursing Neurology Routine Parkinson Disease (HCC) Expected: 01/15/2025, Expires: 04/17/2025 documented as of this encounter Procedures Procedure Name Priority Date/Time Associated Diagnosis Comments DEEP BRAIN STIMULATOR (DBS) PROGRAMMING MOVEMENT DISORDER - NURSING Routine 01/16/2024 9:32 AM CDT Parkinson Disease (HCC) documented in this encounter Visit Diagnoses Diagnosis Parkinson's Disease With Dyskinesia, With Fluctuations (HCC)- Primary Parkinsonism Unspecified (HCC) documented in this encounter Additional Health Concerns Assessment Noted Time PHQ-9 Depression Total Score: 0 01/24/20 19 8:05 AM CDT documented as of this encounter Care Teams [employer]illery Relationship Specialty Start Date End Date Elsewhere, Pcp PCP - General Family Medicine 05/21/18 documented as of this encounter
== END 2024-02-11 08:56 | disposition home or self-care (01) ==
LOC: NFLDREF 02-13 11:21
PROVIDERS: PCP Internal Medicine; Referring Provider Internal Medicine; Visit Provider Internal Medicine
DX: I10 Essential (primary) hypertension (principal); E11.9 Type 2 diabetes mellitus without complications; Z86.39 Personal history of other endocrine, nutritional and metabolic disease
CPT/HCPCS: 80053; 80061

== ENCOUNTER 2024-05-28 08:24 | Outpatient (CLI) | payer BC, SELFPAY | END 2024-05-28 08:25 | disposition home or self-care (01) | LOC: NFLDREF 05-30 12:22 | PROVIDERS: PCP Internal Medicine; Referring Provider Internal Medicine; Visit Provider Internal Medicine | DX: I10 Essential (primary) hypertension (principal); E11.9 Type 2 diabetes mellitus without complications | CPT/HCPCS: 80053 ==

== ENCOUNTER 2024-09-07 07:44 | Outpatient (CLI) | payer BC, SELFPAY | END 2024-09-07 07:45 | disposition home or self-care (01) | LOC: NFLDREF 09-09 05:46 | PROVIDERS: PCP Internal Medicine; Referring Provider Internal Medicine; Visit Provider Internal Medicine | DX: E11.65 Type 2 diabetes mellitus with hyperglycemia (principal); I10 Essential (primary) hypertension; Z79.84 Long term (current) use of oral hypoglycemic drugs; Z12.5 Encounter for screening for malignant neoplasm of prostate; Z13.6 Encounter for screening for cardiovascular disorders | CPT/HCPCS: 80053; 80061; 82043; 82570; G0103 ==

== ENCOUNTER 2025-03-08 07:46 | Outpatient (CLI) | payer BC, SELFPAY | END 2025-03-08 07:47 | disposition home or self-care (01) | LOC: NFLDREF 18:49 | PROVIDERS: PCP Internal Medicine; Referring Provider Internal Medicine; Visit Provider Internal Medicine | DX: E11.9 Type 2 diabetes mellitus without complications (principal) | CPT/HCPCS: 80053; 80061; 82043; 82570 ==